=== PATIENT | female | born 1995 | race Caucasian/White ===

== ENCOUNTER → 2019-02-06 | Outpatient (REF) | payer BC, OTHER ==
[2019-02-09 16:05] LABS: HPV HYBRID CAPTURE II Positive (Negative)
== END ==
LOC: M SFHCWAGY 08:53
PROVIDERS: ATTEND Nurse Practitioner Women's Health
DX: Z12.4 Encounter for screening for malignant neoplasm of cervix (principal); Z80.3 Family history of malignant neoplasm of breast; R87.610 Atypical squamous cells of undetermined significance on cytologic smear of cervix (ASC-US)
CPT/HCPCS: 87624; G0123

== ENCOUNTER → 2020-02-14 | Outpatient (REF) | payer BC, OTHER | LOC: M WHC 14:00 | PROVIDERS: ATTEND Nurse Practitioner Women's Health | DX: Z12.4 Encounter for screening for malignant neoplasm of cervix (principal); R87.612 Low grade squamous intraepithelial lesion on cytologic smear of cervix (LGSIL) ==

== ENCOUNTER → 2020-03-20 | Outpatient (CLI) | payer BC, OTHER ==
--- NOTE | 2020-03-30 17:37 | REP ---
LEFT BREAST ULTRASOUND HISTORY: Retroareolar lump left breast. FINDINGS: Real-time sonographic evaluation of left retroareolar region performed at the site of the reported palpable abnormality. At that location, there is a cyst with a mildly thickened wall, which measures 10 x 8 x 11 mm. There is some mild internal debris. IMPRESSION: BI-RADS Category 2 benign ultrasound left breast. In the retroareolar region at the site of the palpable lump, there is a mildly complex benign cyst as discussed above with mild thickening of the wall of the cyst and mild internal debris. Maximum diameter is 1.1 cm. MTDD
== END ==
LOC: M WHC 14:21
PROVIDERS: ATTEND Nurse Practitioner Women's Health
DX: N60.02 Solitary cyst of left breast (principal)